=== PATIENT | male | born 1985 | race Caucasian/White ===

== ENCOUNTER 2018-12-23 21:26 | Emergency (ER) | payer SELFPAY ==
[2018-12-23 21:41] VITALS: BP 135/80
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
[2018-12-23] MEDS ORDERED: Tetan/Diph/Pertus SYR(Tdap)* 0.5 ML SYR(BOOSTRIX) use SYR IM ONE (21:58)
== END 2018-12-23 22:15 | disposition home or self-care (01) ==
LOC: UCCORT 21:26
DX: S00.81XA Abrasion of other part of head, initial encounter (principal); S00.511A Abrasion of lip, initial encounter; S40.212A Abrasion of left shoulder, initial encounter; V18.0XXA Pedal cycle driver injured in noncollision transport accident in nontraffic accident, initial encounter; Z23 Encounter for immunization; F17.210 Nicotine dependence, cigarettes, uncomplicated
CPT/HCPCS: 90471; 90715; 99202; G0463

== ENCOUNTER 2019-10-26 10:35 | Emergency (ER) | payer BC ==
[2019-10-26 10:47] VITALS: BP 140/84
--- NOTE | 2019-10-26 11:11 | UC ---
General HPI - HPI Summary HPI Summary: 34yo male presenting with tick bite of left arm. States tick is still attached. States he woke up with it this morning and that it was not there when he went to sleep last night. States attached for ~12 hours. Denies pain. Denies fever and chills. - History of Current Complaint Chief Complaint: UCGeneralIllness Stated Complaint: TICK Hx Obtained From: Patient Pain Intensity: 0 - Allergy/Home Medications Allergies/Adverse Reactions: Allergies Allergy/AdvReac Type Severity Reaction Status Date / Time Penicillins Allergy Unknown Unknown Verified 10/26/19 10:47 Reaction Details Home Medications: Home Medications Atorvastatin* [Lipitor 40 MG*] 40 mg PO DAILY 12/23/18 [History Confirmed ] Sildenafil (NF) [Viagra (NF)] 25 mg PO DAILY 12/23/18 [History Confirmed ] PMH/Surg Hx/FS Hx/Imm Hx Endocrine History: Dyslipidemia - Surgical History Surgical History: None - Family History Known Family History: Positive: Hypertension - Social History Alcohol Use: Rare Substance Use Type: None Smoking Status (MU): Heavy Every Day Tobacco Smoker Type: Cigarettes Amount Used/How Often: 1 ppd Review of Systems All Other Systems Reviewed And Are Negative: Yes Constitutional: Positive: Negative Skin: Positive: Other - tick bite left arm Respiratory: Positive: Negative Cardiovascular: Positive: Negative Gastrointestinal: Positive: Negative Musculoskeletal: Positive: Negative Neurological/Mental Status: Positive: Negative Physical Exam Triage Information Reviewed: Yes Appearance: Well-Appearing, No Pain Distress, Well-Nourished Vital Signs: Initial Vital Signs Temp 98.3 F 10/26/19 10:44 Pulse 83 10/26/19 10:44 Resp 14 10/26/19 10:44 BP 140/84 10/26/19 10:44 Pulse Ox 98 10/26/19 10:44 Vital Signs Reviewed: Yes Eyes: Positive: Conjunctiva Clear ENT: Positive: Hearing grossly normal Neck: Positive: Supple Respiratory: Positive: No respiratory distress, No accessory muscle use Cardiovascular Exam: Other - skin reflects adequate perfusion Neurological: Positive: Alert Psychological: Positive: Age Appropriate Behavior Skin: Positive: Other - tick intact on left arm, not engorged, no erythema or warmth Course/Dx - Course Course Of Treatment: I removed the tick without issue. No treatment necessary at this time, given tick was attached only for 12 hours. Instructed to monitor for s/s of infection over next few days and to monitor for rash over next several weeks. Patient voiced understanding and agreed with plan. - Diagnoses Provider Diagnosis: Tick bite of left upper arm Discharge ED - Sign-Out/Discharge Documenting (check all that apply): Patient Departure All imaging exams completed and their final reports reviewed: No Studies - Discharge Plan Condition: Stable Disposition: HOME Patient Education Materials: Tick Bite (ED) Referrals: Karla Foster [Primary Care Provider] - Additional Instructions: You had a tick removed from your arm today. No further treatment is needed at this time. Monitor the area for the next few days for signs of infection that were discussed today. Follow up with your PCP if you experience a rash where you were the tick bit you within the next several weeks. Return or go to the emergency room if you experience fever, nausea and vomiting , or increasing redness, warmth, or drainage from the area. - Billing Disposition and Condition Condition: STABLE Disposition: Home
== END 2019-10-26 11:20 | disposition home or self-care (01) ==
LOC: UCCORT 10:35
DX: S40.862A Insect bite (nonvenomous) of left upper arm, initial encounter (principal); W57.XXXA Bitten or stung by nonvenomous insect and other nonvenomous arthropods, initial encounter; Y92.9 Unspecified place or not applicable; E78.5 Hyperlipidemia, unspecified; Z79.899 Other long term (current) drug therapy; Z88.0 Allergy status to penicillin; F17.210 Nicotine dependence, cigarettes, uncomplicated
CPT/HCPCS: 99211; G0463